=== PATIENT | female | born 1980 | race Caucasian/White ===

== ENCOUNTER 2019-11-30 18:03 | Emergency (ER) | payer BC ==
[~2019-11-30] VITALS: Ht 167.6 cm; Wt 99.8 kg
[~2019-11-30 18:03] MED LIST: ALLEGRA ALLERG180 MG PO; AMOXICILLIN 50500 MG PO; AUGMENTIN 875875 MG PO; AURALGAN EAR DR14 ML OT; FLEXERIL PO; FLONASE 0.05%50 MCG NASAL; IBUPROFEN 800800 MG PO; NORCO 5-325 TA1 EACH PO; OMEPRAZOLE40 MG PO
[2019-11-30 19:06] LABS: ABSOLUTE NEUTROPHILS 5.7 thou/uL (1.4-8.2); BASOPHILS 0.8 % (0.0-2.0); HEMATOCRIT 37.5 % (37.0-47.0); HEMOGLOBIN 12.4 gm/dL (12.0-15.0); LYMPHOCYTES 29.8 % (24.0-44.0); MCH 25.1 pg (26.0-34.0); MCHC 33.1 g/dL (28.0-37.0); MCV 76.1 fL (80.0-100.0); MONOCYTES 7.7 % (1.0-8.0); PLATELET COUNT 252 thou/uL (150-400); POLYS 60.7 % (36.0-66.0); RBC 4.93 mil/uL (4.20-5.00); RDW 14.7 % (10.5-14.5); WBC 9.4 thou/uL (4.0-11.0)
[2019-11-30 19:16] LABS: CALCIUM 8.9 mg/dL (8.5-10.1); CREATININE 0.6 mg/dL (0.6-1.0); POTASSIUM 4.1 mmol/L (3.5-5.1)
[2019-11-30 19:22] LABS: ALBUMIN 3.8 g/dL (3.4-5.0); TOTAL BILIRUBIN 0.6 mg/dL (0.2-1.0); TOTAL PROTEIN 7.5 g/dL (6.4-8.2)
[2019-11-30] MEDS ORDERED: TORADOL 10 MG T10 MG PO (21:16)
[2019-11-30 21:29] VITALS: BP 119/77
--- NOTE | 2019-12-01 08:30 | EKG ---
[facility] [place] [address] ELECTROCARDIOGRAM REPORT Name: SERGIO GURROLA Room #: DEP [facility]#: [id number] Admission: 11/30/19 Attend Phys: Discharge: 11/30/19 Date of : 76 Report #: [id number] THIS REPORT FOR: cc: MOSES - Josiane family physician/PCP MOSES - Josiane family physician/PCP Saran Louis MD [facility] THIS REPORT FOR: //name// [facility] ED Test Date: 2019-11-30 Test Time: 19:03:27 Pat Name: SERGIO GURROLA Department: Room: Gender: F [employer]: : 1980 Requested By: Radha Stack Order Number: [id number] MD: Saran Louis Measurements Intervals [place] Rate: 77 P: 14 MS: 157 QRS: -11 QRSD: 96 T: 21 QT: 385 QTc: 436 Interpretive Statements Sinus rhythm No significant abnormality Baseline wander in lead(s) V2,V3,V4,V5,V6 No previous ECG available for comparison Electronically Signed On 12-01-2019 8:29:53 CDT by Saran Louis [email or web address] <ELECTRONICALLY SIGNED> By: Saran Louis MD, FACC 12/01/19 0829 1903 1903 Saran Louis MD, [facility] /EPI
== END 2019-11-30 21:29 | disposition home or self-care (01) ==
LOC: ER 18:03
PROVIDERS: Physician Assistant
DX: R53.1 Weakness (principal); R42 Dizziness and giddiness; R51 Headache; R53.83 Other fatigue; R19.7 Diarrhea, unspecified; R00.2 Palpitations; Z20.828 Contact with and (suspected) exposure to other viral communicable diseases; Z79.899 Other long term (current) drug therapy; Z79.2 Long term (current) use of antibiotics; Z88.8 Allergy status to other drugs, medicaments and biological substances

== ENCOUNTER 2020-05-04 16:12 | Emergency (ER) | payer BC ==
[~2020-05-04] VITALS: Ht 167.6 cm; Wt 90.7 kg
[~2020-05-04 16:12] MED LIST changes: +TORADOL 10 MG T10 MG PO
[2020-05-04 18:27] VITALS: BP 146/68
== END 2020-05-04 18:27 | disposition home or self-care (01) ==
LOC: ER 16:12
DX: R07.89 Other chest pain (principal); R22.2 Localized swelling, mass and lump, trunk; Z79.899 Other long term (current) drug therapy; Z79.2 Long term (current) use of antibiotics; Z88.8 Allergy status to other drugs, medicaments and biological substances